=== PATIENT | female | born 1990 | race Caucasian/White ===

== ENCOUNTER 2016-09-03 18:33 | Emergency (ER) | payer MEDICAID ==
[~2016-09-03] VITALS: Ht 185.4 cm; Wt 65.3 kg
[2016-09-03] MEDS ORDERED: ONDANSETRON ODT 4 MG TAB.RAPDIS SL ONE (19:15)
[2016-09-03] MEDS ORDERED: HYDROCODONE/APAP 10-325 MG TABLET PO ONE (19:15)
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
[2016-09-03] MEDS ORDERED: HYDROCODONE/APAP 10-325 MG TABLET ONE (19:22)
[2016-09-03] MEDS ORDERED: ONDANSETRON HCL 4 MG TABLET ONE (19:22)
[2016-09-03] MEDS ORDERED: ONDANSETRON ODT 4 MG TAB.RAPDIS ONE ×2 (19:24→19:25)
--- NOTE | 2016-09-03 22:15 | NUR ---
Pt sleeping in bed, no distress noted.
--- NOTE | 2016-09-03 23:34 | NUR ---
Doron arthur in ED - 09/04/16 at 0003 by ELENA Gave pt RX and d/c instructions, verbalized understanding. Pt states she will wait for a ride from her fiance in the waiting room.
--- NOTE | 2016-09-03 23:35 | NUR ---
Gave pt d/c instructions, verbalized understanding. Pt states she will wait for a ride from her fiance in the waiting room.
== END 2016-09-03 23:35 | disposition left against medical advice (07) ==
LOC: ER 18:33
DX: R51 Headache (principal); Z33.1 Pregnant state, incidental; Z88.6 Allergy status to analgesic agent; W22.8XXA Striking against or struck by other objects, initial encounter; Y93.89 Activity, other specified; Y99.8 Other external cause status; Y92.89 Other specified places as the place of occurrence of the external cause
CPT/HCPCS: 36415; 84703; A4663; Q0162

== ENCOUNTER 2016-12-29 11:02 | Emergency (ER) | payer MEDICAID, OTHER ==
[~2016-12-29] VITALS: Ht 185.4 cm; Wt 80.3 kg
[2016-12-29] MEDS ORDERED: PREN1TAB81 PO (11:25)
--- NOTE | 2016-12-29 11:44 | NUR ---
SALINE LOCK PLACED, EKG/CXR DONE, LABS DRAWN AND SENT. MONITOR SHOWS NSR, PO2=99% ON ROOMAIR, PT POSITIONED FOR COMFORT.
[2016-12-29 11:45] LABS: EOSINOPHILS # (AUTO) 0.1 K/uL (0.0-0.7); EOSINOPHILS % (AUTO) 1.2 % (0.0-7.0); HEMATOCRIT 32.2 % (37-47); HEMOGLOBIN 10.6 G/DL (12.0-16.0); LYMPHOCYTES # (AUTO) 1.3 K/UL (0.8-4.8); LYMPHOCYTES % (AUTO) 18.2 % (20.5-51.5); MEAN CORPUSCULAR HEMOGLOBIN 28.4 UUG (27.0-31.0); MEAN CORPUSCULAR HGB CONC 33 g/dL (32.0-37.0); MEAN CORPUSCULAR VOLUME 86.1 FL (81.0-99.0); MONOCYTES # (AUTO) 0.9 K/UL (0.1-1.30); MONOCYTES % (AUTO) 12.1 % (0.0-11.0); NEUTROPHILS # (AUTO) 5.1 K/UL (1.8-8.9); NEUTROPHILS % (AUTO) 68.5 % (38.5-71.5); PLATELET COUNT (AUTO) 294 K/UL (150-450); RED BLOOD CELL COUNT(AUTO) 3.74 MIL/UL (4.2-5.4); WHITE BLOOD COUNT (AUTO) 7.4 K/UL (4.0-11.2)
[2016-12-29 11:54] LABS: CREATININE 0.6 mg/dL (0.6-1.3); POTASSIUM 3.6 mmol/L (3.5-5.1)
[2016-12-29 12:00] LABS: BILIRUBIN,DIRECT 0.1 mg/dL (0.0-0.2); BILIRUBIN,TOTAL 0.3 mg/dL (0.2-1.0); TOTAL PROTEIN, SERUM 7.1 g/dL (6.4-8.2)
--- NOTE | 2016-12-29 12:02 | NUR ---
PAGED DR SCOTT FOR GARDENIA LEI.
--- NOTE | 2016-12-29 12:21 | NUR ---
DR SCOTT SPOKE TO GARDENIA LEI.
--- NOTE | 2016-12-29 13:50 | NUR ---
PT SIGNED THE VQ SCAN ORDER EARLIER AND ASSISTANT MANAGER QUALITY MANAGEMENT ARRIVED EARLIER, HOW EVER AWAITING ARRIVAL OF ISOTOPES. PT RESTING/EYES CLOSED/MONITOR SHOWS NSR/PO2=99 ON ROOMAIR. PT STAED CP 11/03, MD BLOOD AWARE, PT HOWEVER ID -[id number] 1/2 MONTHS.
--- NOTE | 2016-12-29 14:15 | NUR ---
PT TO NUCLEAR MEDICINE.
--- NOTE | 2016-12-29 15:11 | NUR ---
PT RETURNED FROM NUCLEAR MEDICINE, GIVEN DINNER.
--- NOTE | 2016-12-29 18:02 | NUR ---
PT WAS NEDICALLY CLEARED, IV D/C'D INTACT, ACI/RX X1 GIVEN, ALSO COPY OF EKG/ALL TESTS RESULTS GIVEN. PT STATED FEELING BETTER, PT AMBULATED W/O DIFF/TOOK ALL BELONGINGS.
[2016-12-29 18:05] VITALS: BP 128/72
== END 2016-12-29 18:06 | disposition home or self-care (01) ==
LOC: ER 11:02
DX: O26.892 Other specified pregnancy related conditions, second trimester (principal); M94.0 Chondrocostal junction syndrome [Tietze]
CPT/HCPCS: 36415; 70030-TC; 71010; 78579; 85025; 85730; 93005; A4663; A9540; A9567

== ENCOUNTER 2017-11-02 15:27 | Emergency (ER) | payer OTHER ==
[~2017-11-02] VITALS: Ht 182.9 cm; Wt 70.8 kg
[~2017-11-02 15:27] MED LIST: PREN1TAB81 PO
[2017-11-02] MEDS ORDERED: KETOROLAC TROMETHAMINE 30 MG INJ IM ONE (16:30)
[2017-11-02] MEDS ORDERED: ONDANSETRON ODT 4 MG TAB.RAPDIS SL ONE (16:30)
[2017-11-02] MEDS ORDERED: ONDANSETRON ODT 4 MG TAB.RAPDIS ONE (16:32)
[2017-11-02] MEDS ORDERED: KETOROLAC TROMETHAMINE 30 MG INJ ONE (16:32)
--- NOTE | 2017-11-02 16:35 | NUR ---
PATIENT WAS SEEN BY MD FOR C/O TOOTH PAIN. MEDS GIVEN ORDERED. DC, RX (INCLUDING PRECAUTIONS) AND F/U INSTRUCTIONS GIVEN AND EXPLAINED TO PATIENT WHO STATES HE UNDERSTANDS ALL INSTRUCTIONS.
== END 2017-11-02 16:43 | disposition home or self-care (01) ==
LOC: ER 15:29
DX: K08.89 Other specified disorders of teeth and supporting structures (principal); Z90.89 Acquired absence of other organs; Z88.5 Allergy status to narcotic agent; Z79.899 Other long term (current) drug therapy
CPT/HCPCS: A4663; J1885; Q0162

== ENCOUNTER 2019-05-11 22:11 | Inpatient (IN) | payer OTHER ==
[~2019-05-11] VITALS: Ht 185.4 cm; Wt 65.8 kg
[2019-05-11] MEDS ORDERED: IV NORMAL SALINE 1000 ML BAG IV ONE (22:30)
[2019-05-11 22:44] LABS: BASOPHILS % (AUTO) 0.2 % (0.0-2.0); EOSINOPHILS % (AUTO) 0.4 % (0.0-7.0); HEMATOCRIT 34.9 % (31.2-41.9); HEMOGLOBIN 11.9 g/dL (10.9-14.3); LYMPHOCYTES # (AUTO) 1.3 K/uL (20.0-40.0); LYMPHOCYTES % (AUTO) 15.2 % (20.5-51.5); MEAN CORPUSCULAR HEMOGLOBIN 29.7 uug (24.7-32.8); MEAN CORPUSCULAR HGB CONC 34 g/dL (32.3-35.6); MEAN CORPUSCULAR VOLUME 87.4 fL (75.5-95.3); MONOCYTES # (AUTO) 0.9 K/uL (2.0-10.0); MONOCYTES % (AUTO) 10.9 % (0.0-11.0); NEUTROPHILS # (AUTO) 6.2 K/uL (1.8-8.9); NEUTROPHILS % (AUTO) 73.3 % (38.5-71.5); PLATELET COUNT (AUTO) 301 K/uL (179-408); WHITE BLOOD COUNT (AUTO) 8.5 K/uL (3.8-11.8)
[2019-05-11] MEDS ORDERED: LORAZEPAM 2 MG/1 ML VIAL IV ONE (22:45)
[2019-05-11] MEDS ORDERED: ASPIRIN 325 MG TABLET PO ONE (22:45)
[2019-05-11] MEDS ORDERED: ASPIRIN 325 MG TABLET ONE (22:50)
[2019-05-11] MEDS ORDERED: LORAZEPAM 2 MG/1 ML VIAL ONE (22:51)
[2019-05-11 22:55] LABS: CARBON DIOXIDE 28 mmol/L (21-32); CHLORIDE 103 mmol/L (98-107); CREATININE 0.7 mg/dL (0.6-1.3); GLUCOSE 101 mg/dL (74-106); POTASSIUM 3.8 mmol/L (3.5-5.1); UREA NITROGEN, BLOOD 14 mg/dL (7-18)
[2019-05-11 23:01] LABS: ALANINE AMINOTRANSFERASE 29 U/L (14-59); ALKALINE PHOSPHATASE 63 U/L (50-136); ASPARTATE AMINOTRANSFERASE 19 U/L (15-37); BILIRUBIN,DIRECT 0.2 mg/dL (0.0-0.2); BILIRUBIN,TOTAL 0.7 mg/dL (0.2-1.0); CREATINE KINASE, TOTAL 84 U/L (26-192); TOTAL PROTEIN, SERUM 7.1 g/dL (6.4-8.2)
[2019-05-11 23:02] LABS: ETHANOL < 3 MG/DL (0-0)
[2019-05-11 23:07] LABS: THYROID STIMULATING HORMONE 0.463 mIU/mL (0.358-3.740)
--- NOTE | 2019-05-11 23:07 | NUR ---
Patient taken to CT at this time.
[2019-05-11] MEDS ORDERED: IV NS 1000 ML 1,000 ML IV ONE (23:45)
--- NOTE | 2019-05-12 01:22 | NUR ---
Call placed to [facility]
[2019-05-12] MEDS ORDERED: IV NS 1000 ML 1,000 ML IV PRN (01:48)
[2019-05-12 02:00] VITALS: BP 122/76
[2019-05-12] MEDS ORDERED: Z GUARD REMEDY PASTE 57 GM TUBE TOP PRN (02:00)
[2019-05-12] MEDS ORDERED: HYDROCODONE/APAP 5-325MG TABLET PO PRN ×2 (02:00→09:00)
[2019-05-12] MEDS ORDERED: ACETAMINOPHEN 325 MG TABLET PO PRN (02:00)
[2019-05-12] MEDS ORDERED: ONDANSETRON 4 MG/2 ML VIAL IV PRN (02:00)
[2019-05-12] MEDS ORDERED: MAGNESIUM HYDROXIDE 30 ML LIQUID UDC PO PRN (02:00)
[2019-05-12 05:44] VITALS: BP 121/100
[2019-05-12 06:41] LABS: BASOPHILS % (AUTO) 0.3 % (0.0-2.0); EOSINOPHILS # (AUTO) 0.1 K/uL (0.0-0.7); EOSINOPHILS % (AUTO) 1.1 % (0.0-7.0); HEMATOCRIT 34.9 % (31.2-41.9); HEMOGLOBIN 11.9 g/dL (10.9-14.3); LYMPHOCYTES # (AUTO) 1.2 K/uL (20.0-40.0); LYMPHOCYTES % (AUTO) 20.2 % (20.5-51.5); MEAN CORPUSCULAR HEMOGLOBIN 29.4 uug (24.7-32.8); MEAN CORPUSCULAR HGB CONC 34 g/dL (32.3-35.6); MONOCYTES # (AUTO) 0.9 K/uL (2.0-10.0); MONOCYTES % (AUTO) 14.9 % (0.0-11.0); NEUTROPHILS # (AUTO) 3.9 K/uL (1.8-8.9); NEUTROPHILS % (AUTO) 63.5 % (38.5-71.5); PLATELET COUNT (AUTO) 312 K/uL (179-408); RED BLOOD CELL COUNT(AUTO) 4.06 MIL/uL (3.63-4.92); WHITE BLOOD COUNT (AUTO) 6.2 K/uL (3.8-11.8)
[2019-05-12 07:01] LABS: CREATININE 0.6 mg/dL (0.6-1.3); MAGNESIUM 1.9 mg/dL (1.8-2.4); PHOSPHOROUS 3.7 mg/dL (2.5-4.9); POTASSIUM 3.7 mmol/L (3.5-5.1)
[2019-05-12 07:06] LABS: THYROID STIMULATING HORMONE 0.388 mIU/mL (0.358-3.740)
--- NOTE | 2019-05-12 07:42 | NUR ---
Received patient in bed, awake and verbally responsive. No signs of distress noted. No SOB. Pain medication given as ordered for Headache. Will continue to monitor.
--- NOTE | 2019-05-12 07:50 | NUR ---
[place] [id number], patient might be . Dr. Lance made aware, Pharmacy made aware.
--- NOTE | 2019-05-12 10:30 | NUR ---
Patient is awake and verbally responsive. No signs of distress noted. Patient run thru the stairs and trying to meet his Boyfriend, Code Devaughn was initiated, patient was brought back to her room saying shes not going out anymore. Dr. Lance made aware.
--- NOTE | 2019-05-12 11:03 | NUR ---
Patient verbalizing to go AMA with Boyfriend, Dr. Lance made aware with Order may go AMA.
--- NOTE | 2019-05-12 11:11 | NUR ---
Patient signed for AMA with Boyfriend, and left the building with All belongings.
[2019-05-12 11:22] VITALS: BP 143/81
--- NOTE | 2019-05-12 13:27 | NUR ---
Membership Solicitor consult received by this SW at 11:57am. SW arrived on med/surg at 1:15pm, and learned that patient had AMA earlier. No SS interventions needed at this time.
== END 2019-05-12 11:10 | disposition left against medical advice (07) | DRG 57 ==
LOC: ER 22:15 → TELE3 05-12 01:54
PROVIDERS: ADMIT Nurse Practitioner Acute Care; ATTEND Internal Medicine
DX: S06.0X1A Concussion with loss of consciousness of 30 minutes or less, initial encounter (principal); F17.210 Nicotine dependence, cigarettes, uncomplicated; M94.0 Chondrocostal junction syndrome [Tietze]; W10.9XXA Fall (on) (from) unspecified stairs and steps, initial encounter; Y92.89 Other specified places as the place of occurrence of the external cause; R40.2362 Coma scale, best motor response, obeys commands, at arrival to emergency department; Z86.79 Personal history of other diseases of the circulatory system; I10 Essential (primary) hypertension; R40.2142 Coma scale, eyes open, spontaneous, at arrival to emergency department; R40.2252 Coma scale, best verbal response, oriented, at arrival to emergency department; Z33.1 Pregnant state, incidental; Z76.5 Malingerer [conscious simulation]; Z86.718 Personal history of other venous thrombosis and embolism; Z86.711 Personal history of pulmonary embolism
CPT/HCPCS: 36415; 70030-TC; 70450; 71045; 83735; 84100; 84443; 85025; 93005; A4663; G0378; G0480; J2060; J2405; J7030

== ENCOUNTER 2024-01-03 23:05 | Emergency (ER) | payer MEDICAID, OTHER ==
[~2024-01-03] VITALS: Ht 180.3 cm; Wt 83.9 kg
[2024-01-04] MEDS ORDERED: HYDROCODONE/APAP 5-325MG TABLET ONE (01:03)
[2024-01-04] MEDS ORDERED: NAPR-1164 PO (01:07)
[2024-01-04] MEDS: HYDROCODONE/APAP 5-325MG TABLET PO ONE (01:07)
[2024-01-04 01:35] VITALS: BP 126/84; TEMP 98.1; O2SAT 91
== END 2024-01-04 01:37 | disposition home or self-care (01) ==
LOC: ER 23:20
DX: S92.002A Unspecified fracture of left calcaneus, initial encounter for closed fracture (principal); F17.200 Nicotine dependence, unspecified, uncomplicated; Z98.890 Other specified postprocedural states; Z79.899 Other long term (current) drug therapy; Z88.1 Allergy status to other antibiotic agents; W18.39XA Other fall on same level, initial encounter; Y93.89 Activity, other specified; Y92.89 Other specified places as the place of occurrence of the external cause; Y99.8 Other external cause status
CPT/HCPCS: 73650; A4606; A4663